=== PATIENT | male | born 1995 | race Caucasian/White ===

== ENCOUNTER 2019-01-02 19:19 | Emergency (ER) | payer OTHER ==
[~2019-01-02] VITALS: Ht 190.5 cm; Wt 75.0 kg
[2019-01-02] MEDS ORDERED: DOXY-350 PO (19:32)
[2019-01-02] MEDS ORDERED: IBUPROFEN 800 MG TAB PO ONE (21:00)
[2019-01-02 22:32] VITALS: BP 122/73
--- NOTE | 2019-01-03 07:45 | REP ---
Left thumb four views : There is no fracture or dislocation. Mineralization and joint spaces are normal. There are no calcifications or foreign bodies. Impression: Negative left thumb . Electronically Signed by López Aguilar MD 01/03/2019 07:36 A
== END 2019-01-02 22:42 | disposition home or self-care (01) ==
LOC: M ED 19:19
DX: S61.012A Laceration without foreign body of left thumb without damage to nail, initial encounter (principal); W26.8XXA Contact with other sharp object(s), not elsewhere classified, initial encounter; Y92.098 Other place in other non-institutional residence as the place of occurrence of the external cause; I47.2 Ventricular tachycardia; Z79.2 Long term (current) use of antibiotics